=== PATIENT | female | born 1995 | race Hispanic/Latino ===

== ENCOUNTER 2021-03-09 19:47 | Emergency (ER) | payer OTHER ==
[~2021-03-09] VITALS: Ht 165.1 cm; Wt 117.0 kg
[2021-03-09] MEDS ORDERED: ACETAMINOPHEN500 MG PO (20:23)
[2021-03-09] MEDS ORDERED: CEFDINIR300 MG PO (20:23)
[2021-03-09] MEDS ORDERED: IBUPROFEN IB200 MG PO (20:23)
== END 2021-03-09 20:28 | disposition home or self-care (01) ==
LOC: FSED 20:15
DX: R30.0 Dysuria (principal); R50.9 Fever, unspecified; N39.0 Urinary tract infection, site not specified
CPT/HCPCS: 81003; 99283

== ENCOUNTER 2021-05-16 16:05 | Emergency (ER) | payer OTHER ==
[~2021-05-16] VITALS: Ht 165.1 cm; Wt 117.0 kg
[~2021-05-16 16:05] MED LIST: ACETAMINOPHEN500 MG PO; CEFDINIR300 MG PO; IBUPROFEN IB200 MG PO
[2021-05-16] MEDS ORDERED: AUGMENTIN 500-1 EACH PO (16:29)
== END 2021-05-16 16:32 | disposition home or self-care (01) ==
LOC: FSED 16:30
DX: H66.92 Otitis media, unspecified, left ear (principal)
CPT/HCPCS: 99282

== ENCOUNTER 2021-11-22 11:18 | Emergency (ER) | payer OTHER ==
[~2021-11-22] VITALS: Ht 165.1 cm; Wt 114.3 kg
[~2021-11-22 11:18] MED LIST changes: +AUGMENTIN 500-1 EACH PO
[2021-11-22] MEDS ORDERED: KETOROLAC TROMETHAMINE 60 MG/2 ML VIAL ONE (12:00)
[2021-11-22] MEDS ORDERED: CEFDINIR300 MG PO (12:42)
[2021-11-22] MEDS ORDERED: ONDANSETRON ODT4 MG PO (12:43)
== END 2021-11-22 12:53 | disposition home or self-care (01) ==
LOC: FSED 11:36
DX: R30.0 Dysuria (principal); N39.0 Urinary tract infection, site not specified; M54.50 Low back pain, unspecified; R11.0 Nausea
CPT/HCPCS: 81003; 81025; 99282; J1885

== ENCOUNTER 2022-01-17 17:27 | Observation (INO) | payer OTHER ==
[~2022-01-17] VITALS: Ht 165.1 cm; Wt 114.3 kg
[~2022-01-17 17:27] MED LIST changes: +ONDANSETRON ODT4 MG PO
[2022-01-17] MEDS ORDERED: KETOROLAC TROMETHAMINE 60 MG/2 ML VIAL IM ONE (17:45)
[2022-01-17] MEDS ORDERED: TETANUS/DIPHTHERIA TOX ADULT 0.5 ML SYR IM STA (18:18)
[2022-01-17] MEDS ORDERED: MUPIROCIN 2% OINT 22 GM TUBE TOP ONE (18:30)
[2022-01-17] MEDS ORDERED: TETANUS/DIPHTHERIA TOX ADULT 0.5 ML SYR ONE (18:40)
[2022-01-17] MEDS ORDERED: BACITRACIN ZINC 0.9GM TP ONE (18:40)
[2022-01-17] MEDS ORDERED: ONDANSETRON HCL INJ 2MG/ML 2ML 2 MG/ML VIAL IV PRN (20:45)
[2022-01-17] MEDS ORDERED: DIPHENHYDRAMINE HCL INJ 50 MG/ML VIAL IV PRN (20:45)
[2022-01-17] MEDS ORDERED: ZOLPIDEM TARTRATE 5 MG TAB PO PRN (20:45)
[2022-01-17 21:38] VITALS: BP 132/83
[2022-01-17] MEDS ORDERED: Morphine 4mg Syringe 4 MG/ML INJ IV PRN (22:00)
[2022-01-17] MEDS ORDERED: SODIUM CHLORIDE 0.9% 250ML 250 ML ONE (23:10)
[2022-01-18] VITALS (10 sets, daily range): BP systolic 111–138; BP diastolic 67–79
[2022-01-18] MEDS ORDERED: OMEPRAZOLE40 MG PO (02:03)
[2022-01-18 06:06] LABS: BASOPHILS % 0.3 % (0.0-1.0); EOSINOPHILS # (AUTO) 0.1 (0.0-0.4); EOSINOPHILS % 0.3 % (0.0-6.0); HEMOGLOBIN 12.1 g/dL (12.0-16.0); LYMPHOCYTES # (AUTO) 1.7 (1.0-3.2); LYMPHOCYTES % 11.4 % (18.0-39.1); MEAN CORPUSCULAR HEMOGLOBIN 29.3 pg (28-32); MEAN CORPUSCULAR HGB CONC 32.7 g/dL (31-35); MEAN CORPUSCULAR VOLUME 89.6 fL (81-99); MONOCYTES # (AUTO) 0.8 (0.2-0.8); MONOCYTES % 5.2 % (4.4-11.3); NEUTROPHILS # (AUTO) 12.1 (2.1-6.9); NEUTROPHILS % 82.3 % (38.7-80.0); PLATELET COUNT 275 x10e3/uL (140-360); RED BLOOD COUNT 4.13 x10e6/uL (3.6-5.1); RED CELL DISTRIBUTION WIDTH 12.7 % (11.7-14.4)
[2022-01-18 06:32] LABS: ALBUMIN 3.5 g/dL (3.5-5.0); ALBUMIN/GLOBULIN RATIO 0.9 (0.8-2.0); ANION GAP 9.7 mmol/L (8-16); CALCIUM 8.6 mg/dL (8.4-10.2); CREATININE, SERUM 0.76 mg/dL (0.57-1.11); POTASSIUM 3.7 mmol/L (3.5-5.1)
[2022-01-18] MEDS ORDERED: TRAMADOL HCL 50 MG TAB PO PRN (11:15)
[2022-01-18] MEDS ORDERED: ACETAMINOPHEN 325 MG TAB PO PRN (11:15)
[2022-01-18] MEDS ORDERED: HYDRALAZINE HCL 20 MG/ML VIAL IV PRN (11:15)
[2022-01-18] MEDS ORDERED: BUPIVACAINE HCL 0.5% INJ 30 ML VIAL INJ ONE (11:48)
[2022-01-18] MEDS ORDERED: DEXAMETHASONE SOD PHOS INJ 4 MG/ML SDV ONE ×2 (11:48→12:25)
[2022-01-18] MEDS ORDERED: FAMOTIDINE 20 MG/2 ML VIAL IV ONE (12:02)
[2022-01-18] MEDS ORDERED: LIDOCAINE HCL 2% LOCAL INJ 5 ML SDV VIAL INJ ONE (12:25)
[2022-01-18] MEDS ORDERED: POVIDONE IODINE 0.05% 0.05 % ML PO ONE (12:25)
[2022-01-18] MEDS ORDERED: SEVOFLURANE INHAL SOLN 250 ML PEN BTL ONE (12:25)
[2022-01-18] MEDS ORDERED: ONDANSETRON HCL INJ 2MG/ML 2ML 2 MG/ML VIAL ONE (12:25)
[2022-01-18] MEDS ORDERED: KETOROLAC TROMETHAMINE 30 MG/ML VIAL ONE (12:25)
[2022-01-18] MEDS ORDERED: PROPOFOL IV EMULSION 10 MG/ML 20 ML VIAL ONE (12:25)
[2022-01-19] MEDS ORDERED: PANTOPRAZOLE SOD 40 MG TABEC PO SCH (09:00)
== END 2022-01-18 21:20 | disposition home or self-care (01) ==
LOC: FSED 17:33 → ERHOLD 18:14 → MED/SURG3 21:36
PROVIDERS: ADMIT Internal Medicine; ATTEND Internal Medicine
DX: S92.531B Displaced fracture of distal phalanx of right lesser toe(s), initial encounter for open fracture (principal); W22.8XXA Striking against or struck by other objects, initial encounter; Y93.89 Activity, other specified; Z90.49 Acquired absence of other specified parts of digestive tract; E66.9 Obesity, unspecified; K21.9 Gastro-esophageal reflux disease without esophagitis; Z86.16 Personal history of COVID-19
CPT/HCPCS: 11760; 28525; 36415; 73660; 76000; 80053 ×2; 81003; 81025 ×2; 83036; 85025 ×2; 87071; 87075; 87205; 90471; 90714; 93005; 99284; C1713; G0378 ×2; J0690 ×2; J1100; J1885 ×2; J2001; J2405; J2704; J7050 ×2; U0002

== ENCOUNTER 2023-03-09 16:06 | Emergency (ER) | payer OTHER ==
[~2023-03-09] VITALS: Ht 165.1 cm; Wt 120.7 kg
[~2023-03-09 16:06] MED LIST changes: +OMEPRAZOLE40 MG PO
[2023-03-09] MEDS ORDERED: SODIUM CHLORIDE 0.9% 1000ML 1,000 ML IV STA (16:26)
[2023-03-09] MEDS ORDERED: FAMOTIDINE 20 MG/2 ML VIAL IV ONE ×2 (16:30→16:46)
[2023-03-09] MEDS ORDERED: ONDANSETRON HCL INJ 2MG/ML 2ML 2 MG/ML VIAL IV ONE (16:30)
[2023-03-09] MEDS ORDERED: KETOROLAC TROMETHAMINE 30 MG/ML VIAL IV ONE (16:30)
[2023-03-09] MEDS ORDERED: OZEMPIC0.25 MG/0. SC (16:30)
[2023-03-09] MEDS ORDERED: SODIUM CHLORIDE 0.9% 1000ML 1,000 ML ONE (16:46)
[2023-03-09] MEDS ORDERED: KETOROLAC TROMETHAMINE 30 MG/ML VIAL ONE (16:46)
[2023-03-09] MEDS ORDERED: ONDANSETRON HCL INJ 2MG/ML 2ML 2 MG/ML VIAL ONE (16:46)
[2023-03-09] MEDS ORDERED: IOPAMIDOL 370 MG/ML 100 ML INFUS..BTL INJ ONE (17:02)
[2023-03-09 18:55] VITALS: O2SAT 98
== END 2023-03-09 19:00 | disposition home or self-care (01) ==
LOC: FSED 16:10
DX: R50.9 Fever, unspecified (principal); K52.9 Noninfective gastroenteritis and colitis, unspecified; R11.2 Nausea with vomiting, unspecified; R10.13 Epigastric pain; K21.9 Gastro-esophageal reflux disease without esophagitis; F41.9 Anxiety disorder, unspecified
CPT/HCPCS: 74177; 80048; 80076; 81003; 81025; 85025; 96374; 96375; 99284; J1885; J2405; J7030; Q9967

== ENCOUNTER 2024-05-12 06:20 | Emergency (ER) | payer SELFPAY ==
[~2024-05-12] VITALS: Ht 165.1 cm; Wt 122.5 kg
[~2024-05-12 06:20] MED LIST changes: +OZEMPIC0.25 MG/0. SC
[2024-05-12 06:27] VITALS: PULSE 94; RESP 18; TEMP 98.6
[2024-05-12] MEDS ORDERED: BACTRIM DS TAB1 EACH PO (06:44)
[2024-05-12 06:46] VITALS: BP 165/94; PULSE 94; RESP 18; TEMP 98.6; O2SAT 100
== END 2024-05-12 06:46 | disposition home or self-care (01) ==
LOC: FSED 06:44
DX: L03.114 Cellulitis of left upper limb (principal); K21.9 Gastro-esophageal reflux disease without esophagitis; F41.9 Anxiety disorder, unspecified; E66.9 Obesity, unspecified
CPT/HCPCS: 99282

== ENCOUNTER 2025-03-03 18:22 | Emergency (ER) | payer BC ==
[~2025-03-03] VITALS: Ht 165.1 cm; Wt 123.5 kg
[~2025-03-03 18:22] MED LIST changes: +BACTRIM DS TAB1 EACH PO
[2025-03-03 18:54] VITALS: PULSE 89; RESP 16; TEMP 98.5; O2SAT 100
== END 2025-03-03 18:54 | disposition home or self-care (01) ==
LOC: FSED 18:30
DX: K11.20 Sialoadenitis, unspecified (principal); K21.9 Gastro-esophageal reflux disease without esophagitis; F41.9 Anxiety disorder, unspecified; E66.9 Obesity, unspecified
CPT/HCPCS: 99283